=== PATIENT | male | born 1960 | race Caucasian/White ===

== ENCOUNTER 2020-07-20 14:41 | Day surgery (SDC) | payer OTHER ==
[2020-07-20] MEDS ORDERED: Depo-Medrol 40 MG/ML IM ONE (14:42)
[2020-07-20] MEDS ORDERED: BUPIVACAINE 0.5% VIAL IJ ONE (14:42)
[2020-07-20] MEDS ORDERED: Lactated Ringers 1,000 ML IV ONE (16:22)
[2020-07-20] MEDS ORDERED: DIPRIVAN 200 MG/20 ML IV ONE (16:51)
--- NOTE | 2020-07-20 21:05 | XRAY ---
Indication: Bilateral SI joint injection. Intraoperative fluoroscopy provided for 19 seconds. 3 digital spot images submitted for interpretation demonstrates posterior needle tip projecting over the inferior left and right SI joint. Correlate with intraoperative findings/report. Incidental incompletely visualized lumbosacral fusion hardware.
--- NOTE | 2020-07-20 21:05 | XRAY ---
19 seconds of fluoroscopy was used in surgery for a bilateral SI joint injections.
== END 2020-07-20 17:20 | disposition home or self-care (01) ==
LOC: SDC-PAIN 14:41
PROVIDERS: ATTEND Psychiatry & Neurology Pain Medicine
DX: M46.1 Sacroiliitis, not elsewhere classified (principal); F32.9 Major depressive disorder, single episode, unspecified; G47.30 Sleep apnea, unspecified; Z79.899 Other long term (current) drug therapy
CPT/HCPCS: 27096; 72202; 77002; G0260; J1030; J2704

== ENCOUNTER 2020-08-24 14:45 | Day surgery (SDC) | payer OTHER ==
[~2020-08-24 14:45] MED LIST: Lactated Ringers 1,000 ML IV ONE
[2020-08-24] MEDS ORDERED: Depo-Medrol 40 MG/ML IM ONE (14:46)
[2020-08-24] MEDS ORDERED: LIDOCAINE HCL 2% 100 MG/5 ML IJ ONE (14:46)
[2020-08-24] MEDS ORDERED: DIPRIVAN 200 MG/20 ML IV ONE (16:19)
--- NOTE | 2020-08-24 20:04 | XRAY ---
Indication: Bilateral L4-S1 MBB. Intraoperative fluoroscopy provided for 18 seconds. Single digital spot image submitted for interpretation demonstrates posterior needle tips projecting over the left and right L4-S1 nerve roots. Correlate with intraoperative findings/report. Incidental bilateral lumbosacral junction spinal fusion hardware.
--- NOTE | 2020-08-25 08:38 | XRAY ---
18 seconds fluoroscopy time in surgery for bilateral L4-S1 MBB.
== END 2020-08-24 16:50 | disposition home or self-care (01) ==
LOC: SDC-PAIN 14:45
PROVIDERS: ATTEND Psychiatry & Neurology Pain Medicine
DX: M47.816 Spondylosis without myelopathy or radiculopathy, lumbar region (principal); F32.9 Major depressive disorder, single episode, unspecified; F41.9 Anxiety disorder, unspecified; G47.30 Sleep apnea, unspecified
CPT/HCPCS: 64493; 64494; 72020; 77002; J1030; J2704

== ENCOUNTER 2021-02-15 10:41 | Day surgery (SDC) | payer OTHER ==
[2021-02-15] MEDS ORDERED: Depo-Medrol 40 MG/ML IM ONE (10:42)
[2021-02-15] MEDS ORDERED: BUPIVACAINE 0.5% VIAL IJ ONE (10:42)
[2021-02-15] MEDS ORDERED: DIPRIVAN 200 MG/20 ML IV ONE (10:42)
[2021-02-15] MEDS ORDERED: Lactated Ringers 1,000 ML IV ONE (12:49)
--- NOTE | 2021-02-15 13:17 | XRAY ---
Indication: Bilateral L4-S1 MBB. Intraoperative fluoroscopy provided for 23 seconds. Single digital spot image submitted for interpretation demonstrates posterior needle tips projecting over the expected left and right L4-S1 nerve roots. Correlate with intraoperative findings/report. Incidental bilateral lumbosacral junction spinal fusion hardware.
--- NOTE | 2021-02-15 13:23 | XRAY ---
27 seconds fluoroscopy time in surgery for bilateral L4-S1 MBB.
== END 2021-02-15 13:15 | disposition home or self-care (01) ==
LOC: SDC-PAIN 10:41
PROVIDERS: ATTEND Psychiatry & Neurology Pain Medicine
DX: M47.816 Spondylosis without myelopathy or radiculopathy, lumbar region (principal); Z79.899 Other long term (current) drug therapy
CPT/HCPCS: 64493; 64494; 72020; 77002; J1030; J2704

== ENCOUNTER 2021-03-08 07:00 | Day surgery (SDC) | payer OTHER ==
[2021-03-08] MEDS ORDERED: BUPIVACAINE 0.5% VIAL IJ ONE (07:01)
[2021-03-08] MEDS ORDERED: Depo-Medrol 40 MG/ML IM ONE (07:01)
[2021-03-08] MEDS ORDERED: Xylocaine 1% Vial 30 ML PF IJ ONE (07:01)
[2021-03-08] MEDS ORDERED: DIPRIVAN 200 MG/20 ML IV ONE ×2 (08:19→08:25)
--- NOTE | 2021-03-08 09:53 | XRAY ---
Indication: Right L4-S1 RFA. Intraoperative fluoroscopy provided for 39 seconds. 3 digital spot image submitted for interpretation demonstrates posterior needle tips projecting over the expected right L4-S1 nerve roots. Correlate with intraoperative findings/report. Incidental bilateral L5-S1 posterior fusion hardware/intervertebral spacer.
[2021-03-08] MEDS ORDERED: Lactated Ringers 1,000 ML IV ONE (10:01)
--- NOTE | 2021-03-08 11:07 | XRAY ---
39 seconds of fluoroscopy was used in surgery for a L4-S1 RFA.
== END 2021-03-08 08:55 | disposition home or self-care (01) ==
LOC: SDC-PAIN 07:00
PROVIDERS: ATTEND Psychiatry & Neurology Pain Medicine
DX: M47.816 Spondylosis without myelopathy or radiculopathy, lumbar region (principal); Z79.899 Other long term (current) drug therapy
CPT/HCPCS: 64635; 64636; 72100; 77002; J1030; J2001; J2704

== ENCOUNTER 2021-03-15 13:14 | Day surgery (SDC) | payer OTHER ==
[2021-03-15] MEDS ORDERED: Xylocaine 1% Vial 30 ML PF IJ ONE (13:15)
[2021-03-15] MEDS ORDERED: BUPIVACAINE 0.5% VIAL IJ ONE (13:15)
[2021-03-15] MEDS ORDERED: Depo-Medrol 40 MG/ML IM ONE (13:15)
[2021-03-15] MEDS ORDERED: Lactated Ringers 1,000 ML IV ONE (15:23)
[2021-03-15] MEDS ORDERED: DIPRIVAN 200 MG/20 ML IV ONE ×2 (15:51→16:01)
--- NOTE | 2021-03-15 22:15 | XRAY ---
Indication: Left L4-S1 RFA. Intraoperative fluoroscopy provided for 24 seconds. 3 digital spot image submitted for interpretation demonstrates posterior needle tips projecting over the expected left L4-S1 nerve roots. Correlate with intraoperative findings/report. Incidental bilateral L5-S1 posterior fusion hardware/intervertebral spacer.
--- NOTE | 2021-03-16 09:02 | XRAY ---
24 seconds of fluoroscopy was used in surgery for a left L4-S1 RFA.
== END 2021-03-15 16:27 | disposition home or self-care (01) ==
LOC: SDC-PAIN 13:14
PROVIDERS: ATTEND Psychiatry & Neurology Pain Medicine
DX: M47.816 Spondylosis without myelopathy or radiculopathy, lumbar region (principal); Z79.899 Other long term (current) drug therapy
CPT/HCPCS: 64635; 64636; 72100; 77002; J1030; J2001; J2704

== ENCOUNTER 2021-12-27 14:36 | Day surgery (SDC) | payer OTHER ==
[2021-12-27] MEDS ORDERED: Depo-Medrol 40 MG/ML IM ONE (14:37)
[2021-12-27] MEDS ORDERED: BUPIVACAINE 0.5% VIAL IJ ONE (14:37)
[2021-12-27] MEDS ORDERED: DIPRIVAN 200 MG/20 ML IV ONE ×2 (16:00→16:08)
[2021-12-27] MEDS ORDERED: Lactated Ringers 1,000 ML IV ONE (16:27)
--- NOTE | 2021-12-27 18:30 | XRAY ---
Indication: Bilateral L4-S1 MBB. Intraoperative fluoroscopy provided for 20 seconds. Single digital spot image submitted for interpretation demonstrates posterior needle tips projecting over the expected left and right L4-S1 nerve roots. Correlate with intraoperative findings/report. Incidental bilateral lumbosacral junction fusion hardware.
--- NOTE | 2021-12-27 18:36 | XRAY ---
20 seconds fluoroscopy time in surgery for bilateral L4-S1 MBB.
== END 2021-12-27 16:30 | disposition home or self-care (01) ==
LOC: SDC-PAIN 14:36
PROVIDERS: ATTEND Psychiatry & Neurology Pain Medicine
DX: M47.816 Spondylosis without myelopathy or radiculopathy, lumbar region (principal); Z79.899 Other long term (current) drug therapy
CPT/HCPCS: 64493; 64494; 72020; 77002; J1030; J2704

== ENCOUNTER 2022-01-31 12:17 | Day surgery (SDC) | payer OTHER ==
[2022-01-31] MEDS ORDERED: Depo-Medrol 40 MG/ML IM ONE (12:18)
[2022-01-31] MEDS ORDERED: XYLOCAINE-MPF 1% 5ML SDV IJ ONE (12:18)
[2022-01-31] MEDS ORDERED: BUPIVACAINE 0.5% VIAL IJ ONE (12:18)
[2022-01-31] MEDS ORDERED: DIPRIVAN 200 MG/20 ML IV ONE ×2 (14:39→15:12)
[2022-01-31] MEDS ORDERED: Lactated Ringers 1,000 ML IV ONE (16:33)
--- NOTE | 2022-01-31 16:56 | XRAY ---
Indication: Right L4-S1 RFA. Intraoperative fluoroscopy provided for 28 seconds. 3 digital spot images submitted for interpretation demonstrates posterior needle tips projecting over the expected right L4-S1 nerve roots. Correlate with intraoperative findings/report. Incidental bilateral L5-S1 posterior fusion hardware.
--- NOTE | 2022-01-31 20:25 | XRAY ---
28 seconds of fluoroscopy was used in surgery for a right L4-S1 RFA.
== END 2022-01-31 15:35 | disposition home or self-care (01) ==
LOC: SDC-PAIN 12:17
PROVIDERS: ATTEND Psychiatry & Neurology Pain Medicine
DX: M47.816 Spondylosis without myelopathy or radiculopathy, lumbar region (principal); Z79.899 Other long term (current) drug therapy
CPT/HCPCS: 64635; 64636; 72100; 77002; J1030; J2704

== ENCOUNTER 2022-02-07 13:02 | Day surgery (SDC) | payer OTHER ==
[2022-02-07] MEDS ORDERED: LIDOCAINE HCL 1% 50 MG/5 ML VL PF IJ ONE (13:03)
[2022-02-07] MEDS ORDERED: BUPIVACAINE 0.5% VIAL IJ ONE (13:03)
[2022-02-07] MEDS ORDERED: Depo-Medrol 40 MG/ML IM ONE (13:03)
[2022-02-07] MEDS ORDERED: Lactated Ringers 0 ML IV ONE (14:59)
[2022-02-07] MEDS ORDERED: DIPRIVAN 200 MG/20 ML IV ONE (15:10)
--- NOTE | 2022-02-07 16:40 | XRAY ---
Indication: Left L4-S1 RFA. Intraoperative fluoroscopy provided for 20 seconds. 4 digital spot images submitted for interpretation demonstrates posterior needle tips projecting over the expected left L4-S1 nerve roots. Correlate with intraoperative findings/report. Incidental bilateral L5-S1 posterior fusion hardware.
--- NOTE | 2022-02-07 17:22 | XRAY ---
20 seconds of fluoroscopy was used in surgery for a left L4-S1 RFA.
== END 2022-02-07 15:30 | disposition home or self-care (01) ==
LOC: SDC-PAIN 13:02
PROVIDERS: ATTEND Psychiatry & Neurology Pain Medicine
DX: M47.816 Spondylosis without myelopathy or radiculopathy, lumbar region (principal); Z79.899 Other long term (current) drug therapy
CPT/HCPCS: 64635; 64636; 72100; 77002; J1030; J2001; J2704

== ENCOUNTER 2022-04-25 14:38 | Day surgery (SDC) | payer OTHER ==
[2022-04-25] MEDS ORDERED: Sodium Chloride 0.9(Preservative Free) 10 ML IJ ONE (14:39)
[2022-04-25] MEDS ORDERED: Depo-Medrol 40 MG/ML IM ONE (14:39)
[2022-04-25] MEDS ORDERED: DIPRIVAN 200 MG/20 ML IV ONE ×2 (16:33→16:40)
[2022-04-25] MEDS ORDERED: Lactated Ringers 1,000 ML IV ONE (16:47)
--- NOTE | 2022-04-25 19:10 | XRAY ---
Indication: Right L3-L5 transforaminal SHELBY. Intraoperative fluoroscopy provided for 1 minute 40 seconds. 4 digital spot image submitted for interpretation demonstrates posterior needle tips projecting over the expected right L3 and L4 nerve roots. Small amount of contrast injected for needle tip placement. Correlate with intraoperative findings/report. Incidental bilateral L5-S1 posterior fusion hardware
--- NOTE | 2022-04-26 08:37 | XRAY ---
One minute and 40 seconds of fluoroscopy was used in surgery for a right L3-L5 transforaminal SHELBY.
== END 2022-04-25 17:10 | disposition home or self-care (01) ==
LOC: SDC-PAIN 14:38
PROVIDERS: ATTEND Psychiatry & Neurology Pain Medicine
DX: M54.16 Radiculopathy, lumbar region (principal); Z79.899 Other long term (current) drug therapy
CPT/HCPCS: 64483; 64484; 72100; 77003; J1030; J2704; Q9966

== ENCOUNTER 2022-12-26 12:39 | Day surgery (SDC) | payer OTHER ==
[2022-12-26] MEDS ORDERED: BUPIVACAINE 0.5% VIAL IJ ONE (12:40)
[2022-12-26] MEDS ORDERED: Depo-Medrol 40 MG/ML IM ONE (12:40)
[2022-12-26] MEDS ORDERED: Lactated Ringers 1,000 ML IV ONE (14:13)
[2022-12-26] MEDS ORDERED: DIPRIVAN 200 MG/20 ML IV ONE (14:45)
--- NOTE | 2022-12-26 15:19 | XRAY ---
Indication: Left intercostal nerve block. Intraoperative fluoroscopy provided for 18 seconds. 4 digital spot images obtained prone submitted for interpretation demonstrates 3 needles projecting over posterior lateral unknown left lower ribs. Correlate with intraoperative findings/report.
--- NOTE | 2022-12-26 16:47 | XRAY ---
18 seconds of fluoroscopy was used in surgery for a left intercostal nerve block.
== END 2022-12-26 15:19 | disposition home or self-care (01) ==
LOC: SDC-PAIN 12:39
PROVIDERS: ATTEND Psychiatry & Neurology Pain Medicine
DX: R07.81 Pleurodynia (principal); Z79.899 Other long term (current) drug therapy
CPT/HCPCS: 64420; 64421; 71100; 77002; J1030; J2704

== ENCOUNTER 2023-06-05 12:55 | Day surgery (SDC) | payer OTHER ==
[2023-06-05] MEDS ORDERED: Depo-Medrol 40 MG/ML IM ONE (12:56)
[2023-06-05] MEDS ORDERED: LIDOCAINE HCL 1% 50 MG/5 ML VL PF IJ ONE (12:56)
[2023-06-05] MEDS ORDERED: BUPIVACAINE 0.5% VIAL IJ ONE (12:56)
[2023-06-05] MEDS ORDERED: DIPRIVAN 200 MG/20 ML IV ONE ×2 (14:30→14:39)
[2023-06-05] MEDS ORDERED: Lactated Ringers 1,000 ML IV ONE (14:35)
--- NOTE | 2023-06-05 16:33 | XRAY ---
Indication: Right L4-S1 RFA. Intraoperative fluoroscopy provided for 21 seconds. 3 digital spot image submitted for interpretation demonstrates posterior needle tips projecting over the expected right L4-S1 nerve roots. Correlate with intraoperative findings/report. Incidental bilateral L5-S1 fusion hardware
--- NOTE | 2023-06-05 16:37 | XRAY ---
21 seconds of fluoroscopy was used in surgery for a right L4-S1 RFA.
== END 2023-06-05 15:05 | disposition home or self-care (01) ==
LOC: SDC-PAIN 12:55
PROVIDERS: ATTEND Psychiatry & Neurology Pain Medicine
DX: M47.816 Spondylosis without myelopathy or radiculopathy, lumbar region (principal)
CPT/HCPCS: 64635; 64636; 72100; 77002; J1010; J2001; J2704; J1030

== ENCOUNTER 2023-06-06 12:57 | Day surgery (SDC) | payer OTHER ==
[2023-06-06] MEDS ORDERED: BUPIVACAINE 0.5% VIAL IJ ONE (12:58)
[2023-06-06] MEDS ORDERED: LIDOCAINE HCL 1% 50 MG/5 ML VL PF IJ ONE (12:58)
[2023-06-06] MEDS ORDERED: Depo-Medrol 40 MG/ML IM ONE (12:58)
[2023-06-06] MEDS ORDERED: DIPRIVAN 200 MG/20 ML IV ONE ×2 (13:58→14:08)
--- NOTE | 2023-06-06 15:03 | XRAY ---
Indication: Left L4-S1 RFA. Intraoperative fluoroscopy provided for 16 seconds. 3 digital spot images submitted for interpretation demonstrates posterior needle tips projecting over the expected left L4-S1 nerve roots. Correlate with intraoperative findings/report. Incidental bilateral L5-S1 fusion hardware.
--- NOTE | 2023-06-06 15:09 | XRAY ---
16 seconds of fluoroscopy was used in surgery for a left L4-S1 RFA.
[2023-06-06] MEDS ORDERED: Lactated Ringers 1,000 ML IV ONE (15:23)
== END 2023-06-06 14:33 | disposition home or self-care (01) ==
LOC: SDC-PAIN 12:57
PROVIDERS: ATTEND Psychiatry & Neurology Pain Medicine
DX: M47.816 Spondylosis without myelopathy or radiculopathy, lumbar region (principal)
CPT/HCPCS: 64635; 64636; 72100; 77002; J1010; J2001; J2704; J1030

== ENCOUNTER 2023-07-10 13:49 | Day surgery (SDC) | payer OTHER ==
[2023-07-10] MEDS ORDERED: Depo-Medrol 40 MG/ML IM ONE (13:50)
[2023-07-10] MEDS ORDERED: BUPIVACAINE 0.5% VIAL IJ ONE (13:50)
[2023-07-10] MEDS ORDERED: Lactated Ringers 1,000 ML IV ONE (15:24)
[2023-07-10] MEDS ORDERED: DIPRIVAN 200 MG/20 ML IV ONE (15:36)
--- NOTE | 2023-07-10 16:26 | XRAY ---
Indication: Left intercostal nerve block. Intraoperative fluoroscopy provided for 18 seconds. 2 digital spot image submitted for interpretation demonstrates 2 needle tips projecting over the presumed posterior left lower ribs. Correlate with intraoperative findings/report.
--- NOTE | 2023-07-11 10:34 | XRAY ---
18 seconds of fluoroscopy was used in surgery for a left intercostal nerve block.
== END 2023-07-10 15:10 | disposition home or self-care (01) ==
LOC: SDC-PAIN 13:49
PROVIDERS: ATTEND Psychiatry & Neurology Pain Medicine
DX: R07.81 Pleurodynia (principal)
CPT/HCPCS: 64420; 64421; 71100; 77002; J1010; J2704

== ENCOUNTER 2024-07-11 18:32 | Emergency (ER) | payer OTHER ==
--- NOTE | 2024-07-11 18:55 | ERPHSYRPT ---
- History of Present Illness Time Seen by Provider: 07/11/24 18:54 Source: patient, family Exam Limitations: no limitations Physician History: This is a 64-year-old white male patient who arrives to the emergency department with 4-day history of increasing back pain mild headache and felt his heart racing a bit. In the last couple days he complained of chills worsening headache today and a fever of 100.8 at home. Patient arrives to the emergency department with a fever of 102 F, tachycardic in the 120-130 range, mildly short of breath without chest pain. Denies abdominal pain. Denies cough. Patient underwent a spinal laminectomy (06/18/2024) in the lower thoracic spine and upper lumbar spine region at [facility] in [place] on [address] [place] [address]. Patient has a history of 5 back surgeries in the past and also had an implanted TENS unit in the past. Quality: painful Severity: moderate Location: other (Lower thoracic/upper lumbar mid spine region) Possible Causes: other (Postoperative infection) Associated Symptoms: change in skin texture, fever (In the postoperative site), swelling/mass/lumps (In the back postoperative site) Allergies/Adverse Reactions: No Known Drug Allergies Allergy (Verified 07/11/24 18:41) Travel Risk - International Travel Have you traveled outside of the country in past 3 weeks: No - Emerging Infectious Disease Are you exhibiting symptoms associated with any current EIDs: No - Review of Systems Constitutional: Fever Eyes: No Symptoms Ears, Nose, & Throat: No Symptoms Respiratory: No Symptoms Cardiac: Palpitations, No Chest Pain Abdominal/Gastrointestinal: No Symptoms Genitourinary Symptoms: No Symptoms Musculoskeletal: No Symptoms Skin: Cellulitis (In the area of the back postoperative site), Induration (In the area of the back postoperative site) Neurological: Headache (Mild) Psychological: No Symptoms Endocrine: No Symptoms Hematologic/Lymphatic: No Symptoms Immunological/Allergic: No Symptoms All Other Systems: Reviewed and Negative - Past Medical History Neurological History: No Pertinent History Cardiac History: High Cholesterol Respiratory History: No Pertinent History Endocrine Medical History: No Pertinent History Musculoskeletal History: Osteoarthritis Other Medical History: 5 BACK SURGERIES, IMPLANTED TENS UNIT, R SHOULDER PN - Nursing Vital Signs Nursing Vital Signs: Initial Vital Signs Temperature 102.6 F 07/11/24 18:40 Pulse Rate 132 H 07/11/24 18:40 Respiratory Rate 22 07/11/24 18:40 Blood Pressure 140/92 07/11/24 18:40 O2 Sat by Pulse Oximetry 97 07/11/24 18:40 Pain Scale Pain Intensity 4 - Physical Exam General Appearance: no apparent distress, alert, anxiety Eye Exam: PERRL/EOMI, eyes nml inspection Ears, Nose, Throat Exam: normal ENT inspection, moist mucous membranes Neck Exam: normal inspection, non-tender, supple, full range of motion, No midline tenderness Respiratory Exam: normal breath sounds, lungs clear, airway intact, No chest tenderness, No respiratory distress Cardiovascular Exam: tachycardia Gastrointestinal/Abdomen Exam: soft, normal bowel sounds, No tenderness Rectal Exam: not done Back Exam: vertebral tenderness (In the postoperative site region, lower mid line thoracic and midline upper lumbar spine levels), decreased range of motion, other (Indurated skin in the postoperative site on his back. 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 No acute ischemia) Ordered Tests: Active Orders 24 hr Category Date Time Status EKG-ER Only STAT Care 07/11/24 19:30 Active IV Insertion STAT Care 07/11/24 19:30 Active Pulse Oximetry (ED) STAT Care 07/11/24 19:30 Active CHEST 1 VIEW (PORTABLE) Stat Exams 07/11/24 20:04 Taken LUMBAR SPINE W/O [CT] Stat Exams 07/11/24 19:32 Completed THORACIC SPINE W/O CONTRAST [CT] Stat Exams 07/11/24 19:32 Completed BLOOD CULTURE Stat Lab 07/11/24 19:50 Received CBC W DIFF Stat Lab 07/11/24 19:42 Completed CMP Stat Lab 07/11/24 19:42 Completed CULTURE,URINE Stat Lab 07/11/24 20:56 Received Lactic Acid Stat Lab 07/11/24 20:30 Completed MAGNESIUM Stat Lab 07/11/24 19:42 Completed PROCALCITONIN Stat Lab 07/11/24 19:42 Completed TROPONIN Q4H Lab 07/11/24 19:45 Completed TROPONIN Q4H Lab 07/11/24 22:50 Completed UA W/RFX UR CULTURE Stat Lab 07/11/24 20:56 Completed Medication Summary Generic Name Dose Route Start Last Admin Trade Name Raymonq PRN Reason Stop Dose Admin Diltiazem HCl 100 mls @ 5 mls/hr 07/11/24 20:27 07/11/24 21:17 Cardizem Drip 100 Mg/100 Ml D5w IV 08/10/24 20:26 7.5 mg/hr .Q20H PRN 7.5 mls/hr HEART RATE/ A-FIB Titration Protocol 5 MG/HR Vancomycin HCl 1 gm in 200 mls @ 125 mls/hr 07/11/24 22:23 07/11/24 23:03 Vancomycin 1 Gram/200 Ml Bag IV 07/11/24 23:58 125 mls/hr STAT ONE 125 mls/hr Administration Sodium Chloride 1,000 mls @ 200 mls/hr 07/11/24 23:15 07/11/24 23:18 Sodium Chloride 0.9% 1000 Ml IV 08/10/24 23:14 200 mls/hr .Q5H THOMAS Administration Discontinued Medications Generic Name Dose Route Start Last Admin Trade Name Sara PRN Reason Stop Dose Admin Acetaminophen 650 mg 07/11/24 19:30 07/11/24 19:41 Acetaminophen 325 Mg Tablet PO 07/11/24 19:31 650 mg STAT STA Administration Acetaminophen Confirm 07/11/24 19:40 Acetaminophen 325 Mg Tablet Administered 07/11/24 19:41 Dose 650 mg .ROUTE .STK-MED ONE Diltiazem HCl 20 mg 07/11/24 20:19 07/11/24 20:20 Diltiazem Hcl Iv 5 Mg/Ml Vial IV 07/11/24 20:20 10 mg STAT ONE Administration Diltiazem HCl Confirm 07/11/24 20:19 Diltiazem Hcl Iv 5 Mg/Ml Vial Administered 07/11/24 20:20 Dose 50 mg IV .STK-MED ONE Sodium Chloride 1,000 mls @ 999 mls/hr 07/11/24 19:30 07/11/24 20:43 Sodium Chloride 0.9% 1000 Ml IV 07/11/24 20:30 Infused .Q1H1M STA Infusion Sodium Chloride Confirm 07/11/24 19:40 Sodium Chloride 0.9% 1000 Ml Administered 07/11/24 19:41 Dose 1,000 mls @ ud .ROUTE .STK-MED ONE Piperacillin Sod/Tazobactam 100 mls @ 200 mls/hr 07/11/24 22:21 07/11/24 23:00 Sod 3.375 gm/ Sodium Chloride IV 07/11/24 22:50 Infused STAT STA Infusion Sodium Chloride Confirm 07/11/24 22:28 Sodium Chloride 0.9% Administered 07/11/24 22:29 Dose 100 mls @ ud .ROUTE .STK-MED ONE Vancomycin HCl Confirm 07/11/24 23:02 Vancomycin 1 Gram/200 Ml Bag Administered 07/11/24 23:03 Dose 1 gm in 200 mls @ ud IV .STK-MED ONE Piperacillin Sod/Tazobactam Sod Confirm 07/11/24 22:28 Piperacillin/Tazobactam Sodium 3.375 Gm Vial Administered 07/11/24 22:29 Dose 3.375 gm IV .STK-MED ONE Lab/Rad Data: Laboratory Result Diagrams 07/11/24 19:42 07/11/24 19:42 Laboratory Results 07/11/24 07/11/24 07/11/24 Range/Units 22:50 20:56 20:30 WBC (4.23-9.07) x10^3/uL RBC (4.63-6.08) x10^6/uL Hgb (13.7-17.5) g/dL Hct (40.1-51.0) % MCV (79.0-92.2) fL MCH (25.7-32.2) pg MCHC (32.3-36.5) g/dL RDW (11.6-14.4) % Plt Count (163-337) x10^3/uL MPV (9.4-12.4) fL Gran % (34.0-67.9) % Immature Gran % (Auto) (0.001-0.429) % Nucleat RBC Rel Count (0.00-0.2) % Eos # (Auto) (0.04-0.54) x10^3/uL Immature Gran # (Auto) (0.001-0.031) x10^3u/L Absolute Lymphs (auto) (1.32-3.57) x10^3/uL Absolute Monos (auto) (0.30-0.82) x10^3/uL Absolute Nucleated RBC (0.00-0.012) x10^3u/L Lymphocytes % (21.8-53.1) % Monocytes % (5.3-12.2) % Eosinophils % (0.8-7.0) % Basophils % (0.2-1.2) % Absolute Granulocytes (1.78-5.38) x10^3/uL Basophils # (0.01-0.08) x10^3/uL Sodium (135-145) mmol/L Potassium (3.5-5.1) mmol/L Chloride (98-107) mmol/L Carbon Dioxide (22-30) mmol/L Anion Gap (5-15) MEQ/L BUN (9-20) mg/dL Creatinine (0.66-1.25) mg/dL Estimated GFR ML/MIN Glucose (74-106) mg/dL Lactic Acid 1.5 (0.4-2.0) Calcium (8.4-10.2) mg/dL Magnesium (1.6-2.3) mg/dL Total Bilirubin (0.2-1.3) mg/dL AST (17-59) U/L ALT (0-50) U/L Alkaline Phosphatase (38-126) U/L Troponin I < 0.012 (0.000-0.033) ng/mL Serum Total Protein (6.3-8.2) g/dL Albumin (3.5-5.0) g/dL Procalcitonin (0.030-0.080) ng/mL Urine Color Yellow (Yellow) Urine Appearance Clear (Clear) Urine pH 6.5 (4.6-8.0) Ur Specific [place] 1.010 (1.005-1.030) Urine Protein Trace A (Negative) Urine Glucose (UA) Negative (Negative) mg/dL Urine Ketones Trace A (Negative) Urine Blood Small A (Negative) Urine Nitrite Negative (Negative) Urine Bilirubin Negative (Negative) Urine Urobilinogen 1.0 A (0.2) mg/dL Ur Leukocyte Esterase Negative (Negative) U Hyaline Cast (Auto) NONE SEEN (0-2) /LPF Urine Microscopic RBC 0-2 (0-5) /HPF Urine Microscopic WBC 0-2 (0-5) /HPF Ur Epithelial Cells None Seen (None Seen) /HPF Urine Bacteria None Seen (None Seen) /HPF Urine Culture Reflexed YES (NO) Slides for Path Review 07/11/24 07/11/24 07/11/24 Range/Units 19:45 19:42 19:42 WBC (4.23-9.07) x10^3/uL RBC (4.63-6.08) x10^6/uL Hgb (13.7-17.5) g/dL Hct (40.1-51.0) % MCV (79.0-92.2) fL MCH (25.7-32.2) pg MCHC (32.3-36.5) g/dL RDW (11.6-14.4) % Plt Count (163-337) x10^3/uL MPV (9.4-12.4) fL Gran % (34.0-67.9) % Immature Gran % (Auto) (0.001-0.429) % Nucleat RBC Rel Count (0.00-0.2) % Eos # (Auto) (0.04-0.54) x10^3/uL Immature Gran # (Auto) (0.001-0.031) x10^3u/L Absolute Lymphs (auto) (1.32-3.57) x10^3/uL Absolute Monos (auto) (0.30-0.82) x10^3/uL Absolute Nucleated RBC (0.00-0.012) x10^3u/L Lymphocytes % (21.8-53.1) % Monocytes % (5.3-12.2) % Eosinophils % (0.8-7.0) % Basophils % (0.2-1.2) % Absolute Granulocytes (1.78-5.38) x10^3/uL Basophils # (0.01-0.08) x10^3/uL Sodium 138 (135-145) mmol/L Potassium 3.7 (3.5-5.1) mmol/L Chloride 105 (98-107) mmol/L Carbon Dioxide 25 (22-30) mmol/L Anion Gap 12.2 (5-15) MEQ/L BUN 12 (9-20) mg/dL Creatinine 0.97 (0.66-1.25) mg/dL Estimated GFR 87.7 ML/MIN Glucose 128 H (74-106) mg/dL Lactic Acid (0.4-2.0) Calcium 9.6 (8.4-10.2) mg/dL Magnesium 2.1 (1.6-2.3) mg/dL Total Bilirubin 3.10 H (0.2-1.3) mg/dL AST 26 (17-59) U/L ALT 19 (0-50) U/L Alkaline Phosphatase 69 (38-126) U/L Troponin I < 0.012 (0.000-0.033) ng/mL Serum Total Protein 6.9 (6.3-8.2) g/dL Albumin 4.1 (3.5-5.0) g/dL Procalcitonin 0.586 H (0.030-0.080) ng/mL Urine Color (Yellow) Urine Appearance (Clear) Urine pH (4.6-8.0) Ur Specific [place] (1.005-1.030) Urine Protein (Negative) Urine Glucose (UA) (Negative) mg/dL Urine Ketones (Negative) Urine Blood (Negative) Urine Nitrite (Negative) Urine Bilirubin (Negative) Urine Urobilinogen (0.2) mg/dL Ur Leukocyte Esterase (Negative) U Hyaline Cast (Auto) (0-2) /LPF Urine Microscopic RBC (0-5) /HPF Urine Microscopic WBC (0-5) /HPF Ur Epithelial Cells (None Seen) /HPF Urine Bacteria (None Seen) /HPF Urine Culture Reflexed (NO) Slides for Path Review 07/11/24 Range/Units 19:42 WBC 20.4 H (4.23-9.07) x10^3/uL RBC 4.63 (4.63-6.08) x10^6/uL Hgb 14.1 (13.7-17.5) g/dL Hct 41.3 (40.1-51.0) % MCV 89.2 (79.0-92.2) fL MCH 30.5 (25.7-32.2) pg MCHC 34.1 (32.3-36.5) g/dL RDW 12.9 (11.6-14.4) % Plt Count 167 (163-337) x10^3/uL MPV 9.5 (9.4-12.4) fL Gran % 84.1 H (34.0-67.9) % Immature Gran % (Auto) 0.6 H (0.001-0.429) % Nucleat RBC Rel Count 0.0 (0.00-0.2) % Eos # (Auto) 0.01 L (0.04-0.54) x10^3/uL Immature Gran # (Auto) 0.12 H (0.001-0.031) x10^3u/L Absolute Lymphs (auto) 1.04 L (1.32-3.57) x10^3/uL Absolute Monos (auto) 2.04 H (0.30-0.82) x10^3/uL Absolute Nucleated RBC 0.00 (0.00-0.012) x10^3u/L Lymphocytes % 5.1 L (21.8-53.1) % Monocytes % 10.0 (5.3-12.2) % Eosinophils % 0.0 L (0.8-7.0) % Basophils % 0.2 (0.2-1.2) % Absolute Granulocytes 17.15 H (1.78-5.38) x10^3/uL Basophils # 0.04 (0.01-0.08) x10^3/uL Sodium (135-145) mmol/L Potassium (3.5-5.1) mmol/L Chloride (98-107) mmol/L Carbon Dioxide (22-30) mmol/L Anion Gap (5-15) MEQ/L BUN (9-20) mg/dL Creatinine (0.66-1.25) mg/dL Estimated GFR ML/MIN Glucose (74-106) mg/dL Lactic Acid (0.4-2.0) Calcium (8.4-10.2) mg/dL Magnesium (1.6-2.3) mg/dL Total Bilirubin (0.2-1.3) mg/dL AST (17-59) U/L ALT (0-50) U/L Alkaline Phosphatase (38-126) U/L Troponin I (0.000-0.033) ng/mL Serum Total Protein (6.3-8.2) g/dL Albumin (3.5-5.0) g/dL Procalcitonin (0.030-0.080) ng/mL Urine Color (Yellow) Urine Appearance (Clear) Urine pH (4.6-8.0) Ur Specific [place] (1.005-1.030) Urine Protein (Negative) Urine Glucose (UA) (Negative) mg/dL Urine Ketones (Negative) Urine Blood (Negative) Urine Nitrite (Negative) Urine Bilirubin (Negative) Urine Urobilinogen (0.2) mg/dL Ur Leukocyte Esterase (Negative) U Hyaline Cast (Auto) (0-2) /LPF Urine Microscopic RBC (0-5) /HPF Urine Microscopic WBC (0-5) /HPF Ur Epithelial Cells (None Seen) /HPF Urine Bacteria (None Seen) /HPF Urine Culture Reflexed (NO) Slides for Path Review YES - Progress Progress: improved, re-examined Progress Note: 07/11/24 20:15 My medical decision making and the assignment of high complexity of this patient's medical issue today is based on review of the patient's past medical history, review of the patient's medication list, review the patient drug allergy list, history of present illness and physical findings on examination. The workup in this patient includes placement of intravenous line, blood cultures, procalcitonin level, CBC, CMP, myocardial infarction, twelve-lead EKG, infusion of normal saline intravenously, troponin level, magnesium level, CT scan of the lumbar and thoracic spine without contrast. Differential diagnosis includes but is not limited to postoperative infection, postoperative subcutaneous abscess, myocardial infarction, atrial fibrillation, fever, pneumonia/upper respiratory infection, urinary tract infection 07/11/24 22:24 I did interpret the patient's laboratory data results. Based on the laboratory data results, the patient has a significant leukocytosis with left shift and an elevated procalcitonin level. 07/11/24 22:49 I interpreted the patient's preliminary chest x-ray report. I do not see an acute, cardiopulmonary process. I interpreted the patient's repeat twelve-lead EKG on 07/11/2024 at 2229. This was after the patient received a Cardizem bolus followed by a Cardizem drip. The heart rate is 81 bpm the rhythm is atrial fibrillation. There is persistent borderline left axis deviation, normal intervals and normal QRS. QTc is 417. There is no evidence of any acute ischemia. 07/11/24 23:[address] Scott, the neurosurgeon covering for Dr. Hartmann. I reviewed the patient history, presenting complaint, physical findings on examination and the workup results. Dr. Scott was able to view the CT scan images sent on the cloud. He was also made aware that this patient needs evaluation from cardiology because his presentation of atrial fibrillation with RVR and the fact the patient is on a Cardizem drip. The patient will be transferred from our emergency department to the emergency department at [address] Patient was accepted at 2345 07/11/24 23:52 The fax number to the transfer center is [phone]. The phone number to the emergency department to give report is [phone] Counseled pt/family regarding: lab results, diagnosis, rad results Medical Desision Making - Independent Historian Additional History obtained from: Spouse - Diagnostic Testing Diagnostic test were ordered, analyzed, and reviewed by me: Yes Radiological Interpretation: Interpreted by me, Reviewed by me, Teleradiologist Report - Risk of complications The pt has a high risk of morbidity or mortality based on: Decision regarding hospitilization or escalation of hosp level of care - Departure Departure Disposition: Transfer Clinical Impression: Leukocytosis, Fever, Elevated procalcitonin, Postoperative infection, Atrial fibrillation with RVR Condition: Fair Critical Care Time: Yes Critical Care Time(excluding separately billable procedures): Critical 30-74 mins (55) Referrals: FRANCES MOORE [Primary Care Provider, [facility]] - Follow up/PCP as directed
[2024-07-11] MEDS ORDERED: TYLENOL 325 MG ONE (19:40)
[2024-07-11] MEDS ORDERED: Sodium Chloride 0.9% 1000 ML 1,000 ML ONE ×2 (19:40→23:17)
[2024-07-11] MEDS: Sodium Chloride 0.9% 1000 ML 1,000 ML IV STA (19:41)
[2024-07-11] MEDS: TYLENOL 325 MG PO STA (19:41)
[2024-07-11 19:52] LABS: Absolute Neutrophil Ct (ANC) 17.15 x10^3/uL (1.78-5.38); BASOPHIL % 0.2 % (0.2-1.2); Basophil (Absolute #) 0.04 x10^3/uL (0.01-0.08); Eosinophil (Absolute #) 0.01 x10^3/uL (0.04-0.54); Hematocrit 41.3 % (40.1-51.0); Hemoglobin 14.1 g/dL (13.7-17.5); IMMATURE GRAN # 0.12 x10^3u/L (0.001-0.031); IMMATURE GRAN % 0.6 % (0.001-0.429); Lymphocyte (Absolute #) 1.04 x10^3/uL (1.32-3.57); Lymphocytes % 5.1 % (21.8-53.1); Mean Cell Volume 89.2 fL (79.0-92.2); Mean Corpuscular Hemoglobin 30.5 pg (25.7-32.2); Mean Corpuscular Hgb Concent. 34.1 g/dL (32.3-36.5); Mean Platelet Volume 9.5 fL (9.4-12.4); Monocyte (Absolute #) 2.04 x10^3/uL (0.30-0.82); Neutrophil % 84.1 % (34.0-67.9); Platelet Count 167 x10^3/uL (163-337); Red Blood Count 4.63 x10^6/uL (4.63-6.08); Red Cell Distribution Width 12.9 % (11.6-14.4); White Blood Count 20.4 x10^3/uL (4.23-9.07)
[2024-07-11 20:08] LABS: ALBUMIN 4.1 g/dL (3.5-5.0); ANION GAP 12.2 MEQ/L (5-15); BILIRUBIN,TOTAL 3.1 mg/dL (0.2-1.3); Calcium 9.6 mg/dL (8.4-10.2); Creatinine 1 0.97 mg/dL (0.66-1.25); EST GLOMERULAR FILTRATION RATE 87.7 ML/MIN; MAGNESIUM 2.1 mg/dL (1.6-2.3); Potassium 3.7 mmol/L (3.5-5.1); Total Protein 6.9 g/dL (6.3-8.2)
[2024-07-11] MEDS ORDERED: Cardizem IV 50 MG/10 ML IV ONE (20:19)
[2024-07-11] MEDS: Cardizem IV 50 MG/10 ML IV ONE (20:20)
[2024-07-11] MEDS ORDERED: CARDIZEM DRIP 100 MG/100 ML D5W 100 ML IV ONE (20:28)
[2024-07-11] MEDS: CARDIZEM DRIP 100 MG/100 ML D5W 100 ML IV PRN (20:29)
[2024-07-11 21:13] LABS: Appearance Clear (Clear); Bacteria None Seen /HPF (None Seen); Bilirubin Negative (Negative); Blood Small (Negative); Epithelial Cells None Seen /HPF (None Seen); Glucose, Urine Negative (Negative); Hyaline Casts NONE SEEN /LPF (0-2); Ketones Trace (Negative); Leukocyte Esterase Negative (Negative); Nitrite Negative (Negative); Ph 6.5 (4.6-8.0); Protein,Urine Dip Trace (Negative); RBC 0-2 /HPF (0-5); WBC 0-2 /HPF (0-5)
[2024-07-11 21:15] VITALS: TEMP 99.3
--- NOTE | 2024-07-11 21:56 | XRAY ---
CLINICAL HISTORY: Post op subq fluid collection COMPARISON: Comparison is made with the prior imaging dated 03/27/2024 (images only) TECHNIQUE: CT scan of the thoracic spine was performed without the administration of intravenous contrast. Contiguous axial images were obtained from the upper thoracic spine to the lower thoracic spine. Coronal and sagittal reformatted images were also reviewed. One of the following dose reduction techniques was utilized for this exam. Automated exposure control, adjustment of the mA and/or kV according to patient size, and use of iterative reconstruction. FINDINGS: Vertebrae: The vertebral bodies are normal in height and alignment. No evidence of acute fracture or dislocation. Degenerative changes in the visualized spine, with marginal osteophytes. Overall decreased bone density. No signs of lytic or sclerotic lesions. Normal configuration of the posterior elements. Bony island at T6 vertebra. Intervertebral Discs: The intervertebral disc spaces are narrowed. Multilevel disc herniation. No calcifications or ossifications noted within the discs. Facet Joints: The facet joints show bony hypertrophy at multiple levels. Neural Foramina: The neural foramina are patent bilaterally at all levels. No evidence of foraminal narrowing or nerve root compression. Paraspinal Soft Tissues: Area of soft tissue swelling in the midline posteriorly at T12-L1 level, partially visualized, measuring about 6.2 x 3 cm (25 HU). Additional Findings: Costovertebral bony hypertrophy at multiple levels bilaterally. IMPRESSION: 1. Area of soft tissue swelling in the midline posteriorly at T12-L1 level, partially visualized, measuring about 6.2 x 3 cm (25 HU), could be related to postoperative changes. New finding. Further evaluation with post-contrast MR is recommended for accurate assessment. 2. Mild Degenerative changes in the visualized spine, with marginal osteophytes. 3. Multilevel disc space narrowing with facet hypertrophy. 4. Costovertebral bony hypertrophy at multiple levels. 5. No evidence of fractures or dislocations. Electronically Signed by: Jc Swain MD. (07/11/2024 21:52:41 EDT)
--- NOTE | 2024-07-11 22:08 | XRAY ---
CLINICAL HISTORY: Post op subq fluid collection COMPARISON: CT dated 03/27/2024. TECHNIQUE: CT non-contrast scan of lumbar spine done. Axial images obtained with reformatted coronal and sagittal images and submitted for interpretation. One of the following dose reduction techniques were utilized for this exam: Automated exposure control, adjustment of the mA and/or kV according to patient size, use of iterative reconstruction. DLP: 892.83 mGy-cm, CTDI: 23.42 mGy. FINDINGS: Vertebrae: Lumbar tilt towards right cranially. Straightening of lumbar curvature due to muscular spasm. Multilevel anterior and posterior osteophytes with end plate irregularities. Subchondral sclerosis is seen at L2-L3 vertebral level. Grade II anterolisthesis of L5 over S1, with posterior spinal fixators in L5 and S1 vertebrae. No loosening of screws. Intervertebral Discs: Intervertebral discs are reduced at L1-L2 and L2-L3 levels with vacuum phenomenon. Diffuse disc bulge at L1-L2 and L2-L3 levels are indenting ventral thecal sac and obliterating bilateral neural foramina, causing severe compression of bilateral exiting nerve roots. Diffuse disc bulge at L3-L4 level is indenting ventral thecal sac and obliterating bilateral neural foramina, causing moderate compression of bilateral exiting nerve roots. Diffuse disc bulge at L4-L5 level is indenting ventral thecal sac and obliterating bilateral neural foramina, causing moderate compression of bilateral exiting nerve roots. Limited evaluation due to streak artifacts. L5-S1 level cannot be assessed due to streak artifacts. Deficient posterior elements. Facet Joints: No dislocation or subluxation with mild arthropathy in lower lumbar spine bilaterally. Soft Tissues: A 76x25 mm subcutaneous fluid collection is seen in the back from T12 to L3 vertebral level, with fluid extending into posterior vertebral paraspinal space between spinous process and bilateral erector spinae muscles. IMPRESSION: 1. A 76x25 mm subcutaneous fluid collection is seen in the back from T12 to L3 vertebral level, with fluid extending into posterior vertebral paraspinal space between spinous process and bilateral erector spinae muscles. New finding. 2. Multilevel disc bulges with neural compression. 3. Rest of the findings as detailed above. Electronically Signed by: Jc Swain MD. (07/11/2024 22:04:21 EDT)
[2024-07-11 22:14] LABS: Slide Review 1 YES
[2024-07-11] MEDS ORDERED: Sodium Chloride 0.9% 100 ML ONE (22:28)
[2024-07-11] MEDS ORDERED: PIPERACILLIN/TAZOBACTAM IV ONE (22:28)
[2024-07-11] MEDS: PIPERACILLIN/TAZOBACTAM 3.375 GM in Sodium Chloride 0.9% 100 ML IV STA (22:29)
[2024-07-11] MEDS ORDERED: VANCOMYCIN 1 GRAM/200 ML BAG 1 GM/200 ML PIGGYBACK IV ONE (23:02)
[2024-07-11] MEDS: VANCOMYCIN 1 GRAM/200 ML BAG 1 GM/200 ML PIGGYBACK IV ONE (23:03)
[2024-07-11] MEDS: Sodium Chloride 0.9% 1000 ML 1,000 ML IV SCH (23:18)
[2024-07-12 00:13] VITALS: O2SAT 97
[2024-07-12 01:26] VITALS: BP 109/58; PULSE 76; RESP 14
--- NOTE | 2024-07-12 08:06 | XRAY ---
Indication: Fever. Short of breath. Comparison: None Portable apical lordotic chest inflated and clear. Heart not enlarged. Bony thorax intact with osteopenia and mild degenerative changes. No acute findings.
== END 2024-07-12 01:35 | disposition short-term general hospital (02) ==
LOC: ED 18:32
DX: T81.40XA Infection following a procedure, unspecified, initial encounter (principal); D72.829 Elevated white blood cell count, unspecified; R50.9 Fever, unspecified; R79.89 Other specified abnormal findings of blood chemistry; I48.20 Chronic atrial fibrillation, unspecified; M54.9 Dorsalgia, unspecified; R51.9 Headache, unspecified
CPT/HCPCS: 36415; 71045; 72128; 72131; 80053; 81001; 83605; 83735; 84145; 84484; 85025; 87040; 87086; 93005; 94760; 96361; 96365; 96366; 96367; 96374; 96375; 99285; 99291; A9270-GY; J3370

== ENCOUNTER 2024-12-16 13:25 | Day surgery (SDC) | payer OTHER ==
[2024-12-16] MEDS ORDERED: BUPIVACAINE 0.5% VIAL IJ ONE (13:26)
[2024-12-16] MEDS ORDERED: methylPREDNISolone acetate IM ONE (13:26)
[2024-12-16] MEDS ORDERED: LIDOCAINE HCL 1% 50 MG/5 ML VL IJ ONE (13:26)
[2024-12-16] MEDS ORDERED: propofoL IV ONE (16:29)
[2024-12-16] MEDS ORDERED: Lactated Ringers 1,000 ML IV ONE (17:22)
--- NOTE | 2024-12-16 20:05 | XRAY ---
Indication: Left L4-S1 RFA. Intraoperative fluoroscopy provided for 17 seconds. 3 digital spot image submitted for interpretation demonstrates posterior needle tips projecting over expected left L4-S1 nerve roots. Correlate with intraoperative findings/report. Incidental bilateral L5-S1 fusion hardware.
--- NOTE | 2024-12-16 20:12 | XRAY ---
17 seconds of fluoroscopy used in surgery for a left L4-S1 RFA.
== END 2024-12-16 17:09 | disposition home or self-care (01) ==
LOC: SDC-PAIN 13:25
PROVIDERS: ATTEND Psychiatry & Neurology Pain Medicine
DX: M47.817 Spondylosis without myelopathy or radiculopathy, lumbosacral region (principal)

== ENCOUNTER → 2024-12-30 | Day surgery (SDC) | payer OTHER ==
[~2024-12-30] MED LIST changes: +BUPIVACAINE 0.5% VIAL IJ ONE; +LIDOCAINE HCL 1% 50 MG/5 ML VL IJ ONE; +methylPREDNISolone acetate IM ONE; +propofoL IV ONE
--- NOTE | 2024-12-30 16:33 | XRAY ---
28 seconds of fluoroscopy was used in surgery for a right L4-S1 RFA.
--- NOTE | 2024-12-30 16:40 | XRAY ---
Indication: Right L4-S1 RFA. Intraoperative fluoroscopy provided for 28 seconds. 3 digital spot image submitted for interpretation demonstrates posterior needle tips projecting over expected right L4-S1 nerve roots. Correlate with intraoperative findings/report. Incidental bilateral L5-S1 fusion hardware.
== END ==
LOC: SDC-PAIN 11:34
PROVIDERS: ATTEND Psychiatry & Neurology Pain Medicine
DX: M47.817 Spondylosis without myelopathy or radiculopathy, lumbosacral region (principal)